=== PATIENT | female | born 2005 | race Caucasian/White ===

== ENCOUNTER 2025-07-17 23:19 | Emergency (ER) | payer OTHER ==
[~2025-07-17] VITALS: Ht 167.6 cm; Wt 73.5 kg
[2025-07-17 23:22] VITALS: TEMP 97
--- NOTE | 2025-07-17 23:43 | Physician Documentation ---
History of Present Illness ~ Chief Complaint: Abdominal Pain Stated Complaint: ABDOMINAL PAIN Time Seen by MD: 23:41 Mode of Arrival: POV HPI Patient presents to the emergency room with chief complaint of epigastric pain that began this evening. She plays on a collegiate basketball team and symptoms began in the bus ride home. She had no issues playing basketball today. Bowel movements reported to be regular Medication Reconciliation Allergies: Coded Allergies: No Known Allergies (Unverified , 07/17/25) Review of Systems ROS All review of systems negative except as per HPI Physical Exam Vital Signs: Temperature: 97.0, Source: Oral, Heart Rate: 82, Respiratory Rate: 16, BP: 118/88, Pulse Oximetry: 97, Weight: 73.500 Physical Exam General: Patient is awake, alert, oriented x4 in no acute distress Head: Normocephalic and atraumatic. Eyes: Conjunctival normal. EOMI. PERRL. ENT: Mucous membranes moist. Neck: Supple, trachea is midline. Chest: Clear to auscultation bilaterally without rales, rhonchi, or wheezes. There is no accessory muscle use or retractions. Cardiac: RRR without murmurs, gallops, or rubs. Abd: Soft, nondistended, nontender, with normoactive bowel sounds. No guarding, rebound, or rigidity. Progress Results/Orders Results/Orders Orders - EDSON LEY MD Urinalysis, Cult If Indicated (07/17/25 23:36) Straight Cath For Urine Sample (07/17/25 23:36) Completed Orders - EDSON LEY MD Hcg, Ur Ql (07/17/25 23:36) Cbc/Diff (07/17/25 23:36) BMP (07/17/25 23:36) Lipase (07/17/25 23:36) CMP (07/17/25 23:36) Vital Signs 07/17/25 07/17/25 07/18/25 23:22 23:39 00:04 Temp 97.0 Pulse 82 70 Resp 16 18 B/P (MAP) 118/88 112/67 (82) Pulse Ox 97 99 O2 Flow Rate 0 Laboratory Tests Test 07/17/25 23:54 07/18/25 00:30 White Blood Count 12.8 H Red Blood Count 4.01 L Hemoglobin 12.2 Hematocrit 35.7 Mean Corpuscular Volume 89.0 Mean Corpuscular Hemoglobin 30.4 Mean Corpuscular Hemoglobin Concent 34.1 Red Cell Distribution Width 12.6 Platelet Count 263 Mean Platelet Volume 7.7 Neutrophils (%) (Auto) 80.5 H Lymphocytes (%) (Auto) 10.1 L Monocytes (%) (Auto) 8.1 Eosinophils (%) (Auto) 1.1 Basophils (%) (Auto) 0.2 Neutrophils # (Auto) 10.3 H Lymphocytes # (Auto) 1.3 Monocytes # (Auto) 1.0 H Eosinophils # (Auto) 0.1 Basophils # (Auto) 0.0 CBC Comment Sodium Level 139 Potassium Level 3.6 Chloride Level 106 Carbon Dioxide Level 25.6 Anion Gap 7 L Blood Urea Nitrogen 24 H Creatinine 1.09 H Estimated GFR/1.73 m2 64 BUN/Creatinine Ratio 22.0 H Glucose Level 102 Calcium Level 8.1 L Total Bilirubin 0.4 Aspartate Amino Transf (AST/SGOT) 83 H Alanine Aminotransferase (ALT/SGPT) 56 Alkaline Phosphatase 132 Total Protein 6.7 Albumin 3.6 Globulin 3.1 Albumin/Globulin Ratio 1.2 Lipase 24 Chemistry Comments Urine HCG, Qualitative Negative Urine Comment Medical Decision Making Additional information obtaine: old records Findings Patient presents to the emergency room with epigastric pain. Differentials include but are not limited to gastritis cholecystitis diverticulitis pancreatitis constipation therefore emergent labs ordered which were reassuring. Patient's symptoms completely resolved. Patient states she feels like herself. I think the risk of radiation exposure outweighs any benefit. Possible gallbladder pain however she is currently asymptomatic. Diff Dx GI Bleed:Consideration: Include: AE fistula, Angiodysplasia, Bleeding diathesis, Blood loss anemia, Carcinoma, Diverticulosis, Diverticulitis, Esophageal varicies, Esophagitis, Gastritis, Gastroenteritis, Inflammatory BD, Delma-Bronson syndrome, Meckel's diverticulum, PUD, Other Diff Dx Pain:Considerations: Include: AAA, -Complete, - Incomplete, -Inevitable, -Missed, -Threatened, Abruptio placentae, Angina/OH, Aortic dissection, Appendicitis, Bowel obstruction, Cholangitis, Cholecystitis, Cholelithasis, Constipation, Diverticular disease, Dysmenorrhea, Ectopic , Esophageal rupture, Esophagitis, Gastritis/PUD, Gastroenteritis, GI hemorrhage, Hernia, Hepatitis, Inflammatory BD, Ischemic bowel, Mass, Ovarian cyst/torsion, Pancreatitis, PID, Porphyria, Trauma, intraabdominal, Urinary obstruction, Urinary tract infection, Urolithiasis, Other Diff Dx N/V/D:Considerations: Include: Appendicitis, Bowel obstruction, Dehydration, DKA, Diarrhea - bacterial, Diarrhea - parasitic, Diarrhea - viral, Diverticulitis, Diverticulosis, Drug toxicity, Electrolyte imbalance, Food poisoning, Gastroenteritis, GE reflux, GI bleed, Hepatitis, Hernia, Hypovolemia, Hypotension, Inflammatory BD, Impaction, Malnutrition, Pancreatitis, , PUD, Renal failure, Urolithiasis, Urinary obstruction, UTI, Other Diff Dx Rectal:Considerations: Include: Fissure, Fistula, Foreign body, Impaction, Perirectal abscess, Rectal prolapse, Subcutaneous abscess, Thrombosed hemorrhoid, Ulcer, UTI, Other Departure Disposition: 01 HOME / SELF CARE / HOMELESS Impression: Primary Impression: Abdominal pain Condition: Improved Discharge Instructions: Abdominal Pain (Nonspecific) Referrals: NO PRIMARY CARE PROVIDER (PCP) Signature Scribe Signature: No scribe Attestation: The note accurately reflects work and decisions made by me.Edson Ley MD 07/18/25 01:03 EDSON LEY MD Jul 17, 2025 23:43
[2025-07-18 00:25] LABS: MEAN PLATELET VOLUME 7.7 FL (7.4-10.4); RED CELL DISTRIBUTION WIDTH 12.6 % (11.5-14.5)
[2025-07-18 00:47] LABS: CREATININE 1.09 MG/DL (0.40-0.90); TOTAL CARBON DIOXIDE 25.6 MMOL/L (24-32); eCRCL 77 ML/MIN; eGFR 64 ML/MIN
[2025-07-18 00:55] LABS: URINE HCG NEGATIVE (NEG)
[2025-07-18 01:04] LABS: LEUKOCYTE ESTERASE ,URINE NEGATIVE (Neg); NITRITES, URINE NEGATIVE (Neg); OCCULT BLOOD,URINE NEGATIVE (Neg); UA COLLECTION TYPE NON-SPECIFIED
[2025-07-18 01:05] VITALS: BP 105/56; PULSE 72; RESP 16; O2SAT 99
== END 2025-07-18 01:08 | disposition home or self-care (01) ==
LOC: ER 23:20
DX: R10.13 Epigastric pain (principal)
CPT/HCPCS: 36415; 80053; 81003; 81025; 83690; 85025; 99283